=== PATIENT | female | born 1970 | race Caucasian/White ===

== ENCOUNTER 2018-02-23 09:42 | Emergency (ER) | payer BC ==
--- NOTE | 2018-02-23 10:20 | ED ---
Abdominal Pain/Female - HPI Summary HPI Summary: sharp midepigastric pain which began earlier this morning. no associated nausea , minimal radiation , sharp with colicky component, no change in color of urine or stool. no fever or chills. no prior hx. of gb disease, positive family hx. of DVT and PE. with this pain she had some associated shortness of breath. - History of Current Complaint Chief Complaint: UCAbdominalPain Stated Complaint: UPPER QUAD PAIN SOB Time Seen by Provider: 02/23/18 10:08 Hx Obtained From: Patient Hx Last Menstrual Period: hyster ?: No Onset/Duration: Sudden Onset, Lasting Minutes Timing: Minutes Severity Initially: Moderate Pain Intensity: 8 Location: Discrete At: LUQ Radiates: No Character: Sharp Aggravating Factor(s): Nothing Alleviating Factor(s): Nothing Allergies/Adverse Reactions: Allergies Allergy/AdvReac Type Severity Reaction Status Date / Time No Known Allergies Allergy Verified 02/23/18 09:51 PMH/Surg Hx/FS Hx/Imm Hx Previously Healthy: Yes Endocrine/Hematology History: Reports: Hx Thyroid Disease - on daily meds Denies: Hx Sickle Cell Disease Cardiovascular History: Denies: Other Cardiovascular Problems/Disorders Respiratory History: Denies: Other Respiratory Problems/Disorders GI History: Denies: Other GI Disorders History: Denies: Other Problems/Disorders Musculoskeletal History: Denies: Other Musculoskeletal History Sensory History: Reports: Hx Contacts or Glasses - GLASSES Denies: Hx Hearing Aid Opthamlomology History: Reports: Hx Contacts or Glasses - GLASSES Neurological History: Reports: Hx Migraine - Cancer History Hx Chemotherapy: Yes - CERVICAL CANCER 97 Hx Radiation Therapy: No - Surgical History Surgery Procedure, Year, and Place: HYSTERECTOMY,APPENDECTOMY,TUBULAR, ECTOPIC, OVARIAN CYST Hx Anesthesia Reactions: No - N/V Infectious Disease History: No Infectious Disease History: Denies: Traveled Outside the [place] in Last 30 Days - Social History Alcohol Use: Weekly Alcohol Amount: usually 1-2 drinks/wk Substance Use Type: Reports: None Smoking Status (MU): Former Smoker Type: Cigarettes Amount Used/How Often: 6 cig./day 20 yrs Have You Smoked in the Last Year: No Review of Systems Constitutional: Negative Eyes: Negative ENT: Negative Cardiovascular: Negative Positive: Shortness Of Breath Positive: Abdominal Pain Genitourinary: Negative Musculoskeletal: Negative All Other Systems Reviewed And Are Negative: Yes Physical Exam Triage Information Reviewed: Yes Vital Signs On Initial Exam: Initial Vitals Temp Pulse Resp BP Pulse Ox 36.6 C 86 16 127/85 100 02/23/18 09:48 02/23/18 09:48 02/23/18 09:48 02/23/18 09:48 02/23/18 09:48 Vital Signs Reviewed: Yes Appearance: Positive: Well-Appearing Skin: Positive: Warm, Dry Head/Face: Positive: Normal Head/Face Inspection Eyes: Positive: Normal ENT: Positive: Normal ENT inspection Neck: Positive: Supple Respiratory/Lung Sounds: Positive: Clear to Auscultation Cardiovascular: Positive: Normal Abdomen Description: Positive: Soft, Other: - tender left upper quadrant Bowel Sounds: Positive: Present Musculoskeletal: Positive: Normal Neurological: Positive: Normal Diagnostics - Vital Signs Vital Signs Temp Pulse Resp BP Pulse Ox 02/23/18 09:48 36.6 C 86 16 127/85 100 - Laboratory Result Diagrams: 02/23/18 12:13 02/23/18 12:13 Lab Statement: Any lab studies that have been ordered have been reviewed, and results considered in the medical decision making process. Abdominal Pain Fem Course/Dx - Diagnoses Provider Diagnoses: Midepigastric pain, Cholelithiasis Discharge - Sign-Out/Discharge Documenting (check all that apply): Patient Departure All imaging exams completed and their final reports reviewed: Yes - Discharge Plan Condition: Fair Disposition: HOME Prescriptions: Amoxicillin PO (*) [Amoxicillin 875 MG (*)] 875 mg PO BID #14 tab Patient Education Materials: Cholecystitis (ED), Gallstones (ED), Gallbladder Ejection Fraction (DC) Referrals: Keely Noonan MD [Primary Care Provider] - - Billing Disposition and Condition Condition: FAIR Disposition: Home
--- NOTE | 2018-02-23 10:34 | RAD ---
HISTORY: cough, s/p radiation to the breast COMPARISONS: May 30, 2014 VIEWS: 4: Frontal dual-energy and lateral views of the chest. FINDINGS: CARDIOMEDIASTINAL SILHOUETTE: The cardiomediastinal silhouette is normal. LAKISHA: The lakisha are normal. PLEURA: The costophrenic angles are sharp. No pleural abnormalities are noted. LUNG PARENCHYMA: The lungs are clear. ABDOMEN: The upper abdomen is clear. There is no subphrenic gas. BONES AND SOFT TISSUES: No bone or soft tissue abnormalities are noted. OTHER: None. IMPRESSION: NO ACTIVE CARDIOPULMONARY DISEASE.
--- NOTE | 2018-02-23 11:38 | RAD ---
HISTORY: midepigastric pain COMPARISONS: None TECHNIQUE: Multiple transverse and longitudinal ultrasound images were obtained of the right upper quadrant of the abdomen using grayscale and color Doppler imaging. FINDINGS: LIVER: The liver is normal in shape, size, contour, and echogenicity. There are no focal parenchymal masses. There is normal hepatopedal flow of the portal vein on Doppler imaging. BILIARY TREE: There is no intrahepatic or extrahepatic biliary dilatation. The common duct measures 0.5 cm. GALLBLADDER: The gallbladder is distended. A 0.7 cm shadowing echogenic focus consistent with a gallstone is noted. There is no gallbladder wall thickening, pericholecystic fluid, or sonographic Rhodes sign. PANCREAS: The head of the pancreas is unremarkable. The tail of the pancreas is not well visualized secondary to overlying bowel gas. RIGHT KIDNEY: The right kidney is normal in shape, size, contour, and echogenicity. There is no hydronephrosis or nephrolithiasis. The right kidney measures 10.5 x 3.7 x 4.7 cm. AORTA AND IVC: The aorta and IVC are unremarkable. FLUID: There are no pleural effusions. There is no free fluid within the hepatorenal recess. OTHER FINDINGS: None. IMPRESSION: CHOLELITHIASIS WITHOUT SONOGRAPHIC FEATURES OF ACUTE CHOLECYSTITIS.
[2018-02-23 12:21] VITALS: BP 125/80
[2018-02-23 16:50] LABS: ABS Basophils 0.1 10^3/ul (0-0.2); ABS Eosinophils 0.2 10^3/ul (0-0.6); ABS Monocytes 0.7 10^3/ul (0-0.8); ABS Neutrophils 3.9 10^3/ul (1.5-7.7); ABS Nucleated RBC 0 10^3/ul; Eosinophil % 4.1 % (0-6); Hematocrit 43 % (35-47); Hemoglobin 14.9 g/dl (12.0-16.0); Lymphocyte % 17.4 % (25-47); Mean Corpuscular HGB Conc 35 g/dl (31-36); Mean Corpuscular Hemoglobin 33 pg (27-31); Mean Corpuscular Volume 96 fL (80-97); Mean Platelet Volume 8.2 um3 (7.4-10.4); Nucleated Red Blood Cells % 0.2; Platelet Count 172 10^3/ul (150-450); Red Cell Distribution Width 14 % (10.5-15); White Blood Count 5.9 10^3/ul (3.5-10.8)
[2018-02-23 17:04] LABS: EGFR Non-African American 89.3 (>60)
--- NOTE | 2018-02-23 21:39 | UC ---
- Progress Note Progress Note: Patient Name: NEERU RAMOS Medical Record#: [id number] Ordering Physician: Aurelio Isabel MD Acct.#: [id number] : 1970 Age: 47 Sex: F Location: [facility] Exam Date: 02/23/18 1009 ADM Status: REG ER Order Information: CHEST PA & LAT 2 VWS Accession Number: [id number] CPT: 34891 HISTORY: cough, s/p radiation to the breast COMPARISONS: May 30, 2014 VIEWS: 4: Frontal dual-energy and lateral views of the chest. FINDINGS: CARDIOMEDIASTINAL SILHOUETTE: The cardiomediastinal silhouette is normal. MILAD: The milad are normal. PLEURA: The costophrenic angles are sharp. No pleural abnormalities are noted. LUNG PARENCHYMA: The lungs are clear. ABDOMEN: The upper abdomen is clear. There is no subphrenic gas. BONES AND SOFT TISSUES: No bone or soft tissue abnormalities are noted. OTHER: None. IMPRESSION: NO ACTIVE CARDIOPULMONARY DISEASE. <Electronically signed by Kris Izquierdo MD in OV> 02/23/18 1031 Dictated By: Kris Izquierdo MD Dictated Date/Time: 02/23/18 1031 Transcribed Date/Time: 02/23/18 1030 Copy to: CC:Keely oNonan MD; Aurelio Isabel MD Imaging - [facility] - [facility] [address] [address] ph ([phone]) ph ([phone]) ph ([phone]) This report is only to be considered final once signed by the Provider(s) as displayed in the "<Electronically Signed by >" field (s). Absence of a signature indicates the report is in a draft status and still needs to be finalized. In the event this document was created by someone other than the signing Provider, the individual initiating the document will be listed in the "Entered by:" or "Dictated by:" harvey. 1 of 1 Discharge - Sign-Out/Discharge Documenting (check all that apply): Post-Discharge Follow Up All imaging exams completed and their final reports reviewed: Yes - Discharge Plan Condition: Fair Disposition: HOME Prescriptions: Amoxicillin PO (*) [Amoxicillin 875 MG (*)] 875 mg PO BID #14 tab Patient Education Materials: Cholecystitis (ED), Gallstones (ED), Gallbladder Ejection Fraction (DC) Referrals: Keely Noonan MD [Primary Care Provider] - - Billing Disposition and Condition Condition: FAIR Disposition: Home
== END 2018-02-23 12:16 | disposition home or self-care (01) ==
LOC: UCEAST 09:42
DX: R10.13 Epigastric pain (principal); K80.20 Calculus of gallbladder without cholecystitis without obstruction; E07.9 Disorder of thyroid, unspecified; Z90.710 Acquired absence of both cervix and uterus; Z90.89 Acquired absence of other organs; Z87.891 Personal history of nicotine dependence
CPT/HCPCS: 36415; 71046; 76705; 80053; 81003; 83690; 85025; 93005; 99212; G0463

== ENCOUNTER 2018-03-14 11:40 | Day surgery (SDC) | payer BC ==
[~2018-03-14 11:40] MED LIST: Buffered Lidocaine 0.9% SYRIN* 5 ML/SYR SYRINGE INTRADERM ONE; Bupivacaine 0.25% SDV* 30 ML ONE; Famotidine IV* 10 MG/ML 2 ML (20 mg) IV ONE; Midazolam* 1 MG/ML 5 ML VIAL (5 MG) ONE; Scopolamine 1.5 mg* PATCH TRANSDERM ONE; fentaNYL* 50 MCG/ML 2 ML VIAL (100 MCG VIAL) ONE
[2018-03-14] MEDS ORDERED: Famotidine IV* 10 MG/ML 2 ML (20 mg) ONE (11:52)
[2018-03-14] MEDS ORDERED: ceFAZolin 2 GM PREMIX in ORs 2 GM/50 ML BAG IVPB ONE (11:53)
[2018-03-14] MEDS ORDERED: Scopolamine 1.5 mg* PATCH ONE (11:53)
[2018-03-14] MEDS ORDERED: Rocuronium* 10 MG/ML VIAL ONE (12:02)
[2018-03-14] MEDS ORDERED: Propofol* 10 MG/ML 20 ML BTL IV PUSH ONE (13:00)
[2018-03-14] MEDS ORDERED: Ketorolac INJ* 30 MG/ML 1 ML VIAL ONE (13:00)
[2018-03-14] MEDS ORDERED: DiMENhydriNATE IV* 50 MG/ML VIAL ONE ×2 (13:00→15:27)
[2018-03-14] MEDS ORDERED: Succinylcholine* 20 MG/ML 10 ML VIAL ONE (13:00)
[2018-03-14] MEDS ORDERED: Ondansetron INJ* 2 MG/ML VIAL ONE (13:00)
[2018-03-14] MEDS ORDERED: Lidocaine 2% PF * 5 ML VIAL ONE (13:00)
[2018-03-14] MEDS ORDERED: Dexamethasone IV* 4 MG/ML 1 ML (4 MG) ONE (13:00)
[2018-03-14] MEDS ORDERED: HYDROmorphone INJ1* 1 MG/ML SYRINGE ONE (13:04)
--- NOTE | 2018-03-14 14:13 | OP ---
Operative Report - Blank - Operative Report Date of Operation: 03/14/18 Note: Brief Operative Note Preop Dx: symptomatic cholelithiasis Postop Dx: same; also lesion of caudate lobe of liver Procedure: laparoscopic cholecystectomy; resection lesion caudate lobe of liver Anesthesia: GET Surgeon: Aaron [employer] Engineer: KEVIN Hurley Fluids: 1200 ml RL EBL: < 50ml Specimen: gallbladder and liver lesion Drains: none Findings: dictated
[2018-03-14] MEDS ORDERED: DiMENhydriNATE IV* 50 MG/ML VIAL IV PUSH PRN (15:29)
[2018-03-14] MEDS ORDERED: Naloxone* 0.4 MG/ML 1 ML VIAL IV PRN (15:29)
[2018-03-14] MEDS ORDERED: HYDROmorphone INJ1* 1 MG/ML SYRINGE IV PRN (15:29)
[2018-03-14] MEDS ORDERED: Acetaminophen TAB* 325 MG PO PRN (15:29)
[2018-03-14 15:32] VITALS: BP 125/70
--- NOTE | 2018-03-16 09:36 | OP ---
CC: Keely Noonan MD * DATE OF OPERATION: 03/14/18 - SDS DATE OF : 68 SURGEON: Catarino Walker MD CLIENT SERVICES MANAGER: KEVIN Lew ANESTHESIA: General endotracheal. PRE-OP DIAGNOSIS: Symptomatic cholelithiasis. POST-OP DIAGNOSIS: Symptomatic cholelithiasis and liver lesion caudate lobe. OPERATIVE PROCEDURE: Laparoscopic cholecystectomy and wedge resection liver lesion caudate lobe. ESTIMATED BLOOD LOSS: Less than 50 mL. IV FLUIDS: 1.2 L crystalloid. SPECIMENS: Gallbladder and wedge excision of liver lesion. DRAINS: None. COMPLICATIONS: None. COUNTS: The instrument, needle, and sponge counts were correct. DESCRIPTION OF PROCEDURE: The patient was brought to the operating room and placed on the table supine. Sequential compression devices were placed in both lower extremities. General anesthesia was administered. The abdomen was prepped and draped in the usual sterile fashion. She received appropriate intravenous antibiotics. Time-out was performed. Local anesthetic was infiltrated into the skin and soft tissue and the incision was created through the scar around the left side of the umbilicus. Open technique was used to access the peritoneal cavity after which a 12-mm trocar was placed and carbon dioxide was insufflated to a pressure of 15 mmHg. Under direct visualization, three 5 mm trocars were placed, one in the subxiphoid position, two in the right upper quadrant. The gallbladder was identified. It had no acute changes. The gallbladder fundus was grasped and retracted cephalad. The infundibulum was identified and the peritoneum investing the gallbladder was incised both medially and laterally with the use of cautery and sharp dissection. Dissection proceeded to dissect out the cystic duct as well as the cystic artery and after obtaining critical view, each of these structures was doubly clipped and divided. The gallbladder was then freed from attachments to the liver using the hook cautery. Once the gallbladder was freed , it was placed into an endoscopic retrieval bag and retrieved through the umbilical site. Inspection revealed hemostasis to be excellent, clips to be intact. There was an approximately 1 cm nodule within the area of the left lobe of the liver and the caudate. This projected outward and had not been noted on the preop ultrasound. It was decided to biopsy this ultimately by excising it. The liver mass was grasped and then the parenchyma was scored with the cautery and the LigaSure was used to divide the liver wedging out the mass in its entirety. Hemostasis was assured. The specimen was submitted to pathology in formalin. The hemostasis was ensured in the liver bed. Ports were removed under direct visualization, and carbon dioxide was released. The umbilical site was closed with 0 Vicryl to approximate the fascia and skin incisions were closed with 4-0 Monocryl in subcuticular fashion. Steri-Strips were applied. The patient tolerated the procedure well, was extubated and transferred to Recovery in stable condition. [id number]/[facility] #: [id number] MTDD
== END 2018-03-14 15:46 | disposition home or self-care (01) ==
LOC: OR 11:40
PROVIDERS: ATTEND Surgery
DX: K80.18 Calculus of gallbladder with other cholecystitis without obstruction (principal); K76.89 Other specified diseases of liver; G43.009 Migraine without aura, not intractable, without status migrainosus; M19.90 Unspecified osteoarthritis, unspecified site; E03.9 Hypothyroidism, unspecified; Z87.891 Personal history of nicotine dependence
CPT/HCPCS: 88304; 88307; 88313; A9270-GY; J0330; J0690; J1100; J1170; J1240; J1885; J2250; J2405; J2704; J3010